=== PATIENT | male | born 1985 | race Caucasian/White ===

== ENCOUNTER 2018-10-07 23:01 | Inpatient (IN) | payer MEDICAID, OTHER ==
[2018-10-08] MEDS: SOD CHLORIDE 0.9% 810 ML IV (00:14)
[2018-10-08 00:19] LABS: ADD MAN DIFF? NO
[2018-10-08 00:21] LABS: BASOPHIL # 0.1 10^3/ul (0.0-0.1); BASOPHILS % 0.6 % (0.0-2.0); EOSINOPHILS # 0.2 10^3/ul (0.0-0.5); EOSINOPHILS % 1.6 % (0.0-7.0); HEMATOCRIT 26.6 % (42.0-52.0); HEMOGLOBIN 8.7 g/dl (14.0-18.0); LYMPHOCYTES # 1.3 10^3/ul (0.8-2.9); LYMPHOCYTES % 11.6 % (15.0-51.0); MEAN CORPUSCULAR HEMOGLOBIN 24.6 pg (29.0-33.0); MEAN CORPUSCULAR HGB CONC 32.7 g/dl (32.0-37.0); MEAN CORPUSCULAR VOLUME 75.4 fl (82.0-101.0); MEAN PLATELET VOLUME 9.5 fl (7.4-10.4); MONOCYTE # 0.6 10^3/ul (0.3-0.9); MONOCYTES % 5.3 % (0.0-11.0); NEUTROPHIL # 9.3 10^3/ul (1.6-7.5); NEUTROPHILS % 80.6 % (39.0-77.0); PLATELET COUNT 763 10^3/UL (140-415); RED BLOOD COUNT 3.53 10^6/ul (4.70-6.10); RED CELL DISTRIBUTION WIDTH 18.1 % (11.5-14.5)
[2018-10-08 00:21] LABS: WHITE BLOOD COUNT 11.6 10^3/ul (4.8-10.8)
[2018-10-08 00:24] LABS: ADD UMIC NO; UR ASCORBIC ACID NEGATIVE (NEGATIVE); UR BILIRUBIN (Dip) NEGATIVE (NEGATIVE); UR BLOOD (Dip) NEGATIVE (NEGATIVE); UR CLARITY CLEAR (CLEAR); UR COLOR COLORLESS (YELLOW); UR GLUCOSE (Dip) 3+ mg/dL (NEGATIVE); UR KETONES (Dip) NEGATIVE (NEGATIVE); UR LEUKOCYTE ESTERASE (Dip) NEGATIVE Leu/ul (NEGATIVE); UR NITRITE (Dip) NEGATIVE (NEGATIVE); UR SPECIFIC GRAVITY (Dip) 1.025 (1.003-1.030); UR TOTAL PROTEIN (Dip) NEGATIVE (NEGATIVE); UR UROBILINOGEN (Dip) NEGATIVE (NEGATIVE)
[2018-10-08 00:40] LABS: ALBUMIN 3.9 g/dl (3.3-4.9); ALBUMIN/GLOBULIN RATIO 0.92; ALKALINE PHOSPHATASE 101 IU/L (42-121); ANION GAP 13 (5-13); ASPARTATE AMINO TRANSFERASE 16 IU/L (15-46); BILIRUBIN,INDIRECT 0.2 mg/dl (0-1.1); BILIRUBIN,TOTAL 0.2 mg/dl (0.2-1.3); BLOOD UREA NITROGEN 18 mg/dl (7-20); CALCIUM 9.6 mg/dl (8.4-10.2); CARBON DIOXIDE 26 mmol/L (21-31); CHLORIDE 91 mmol/L (97-110); Estimated GFR > 60 mL/min (>60); MAGNESIUM 1.8 mg/dl (1.7-2.5); POTASSIUM 5.3 mmol/L (3.5-5.1); SODIUM 130 mmol/L (135-144); TOTAL PROTEIN 8.1 g/dl (6.1-8.1)
[2018-10-08 00:44] LABS: ALANINE AMINOTRANSFERASE < 6 IU/L (13-69)
[2018-10-08 00:49] LABS: GLUCOSE 657 mg/dl (70-220)
[2018-10-08] MEDS: INSULIN REGULAR, HUMAN 100 UNIT/1 ML 3ML VIAL IV (01:21)
[2018-10-08] MEDS: ONDANSETRON 4 MG INJ IV (01:23)
[2018-10-08 01:24] LABS: MODE ROOM AIR; MetHgb Venous 0.3 %; Sample Type Blood venous; Site UVL; Venous COHb 1.2 %; Venous Fraction OxyHgb 85.4 %; Venous Oxygen Sat 86.7 mmHG (55.0-75.0)
[2018-10-08] MEDS: morphine 4 MG/ML VIAL IV (01:24)
[2018-10-08] MEDS ORDERED: ONDANSETRON 4 MG INJ IV (04:00)
[2018-10-08] MEDS ORDERED: BISACODYL (EC) 5 MG TAB PO (04:00)
[2018-10-08] MEDS ORDERED: NACL 0.9% 3 ML SYG IV (04:00)
[2018-10-08] MEDS ORDERED: ACETAMINOPHEN 325 MG TAB PO (04:00)
[2018-10-08] MEDS ORDERED: METOCLOPRAMIDE 10 MG INJ IV (04:00)
[2018-10-08] MEDS ORDERED: DOCUSATE SODIUM 100 MG CAP PO (04:00)
[2018-10-08 04:05] LABS: IRON 25 ug/dl (35-150)
[2018-10-08 04:14] LABS: % IRON SATURATION 5 % SAT (22-52); TOTAL IRON BINDING CAPACITY 458 ug/dl (241-421)
[2018-10-08] MEDS ORDERED: DEXTROSE 50% 50 ML SYRINGE IV ×2 (04:30)
[2018-10-08] MEDS ORDERED: GLUCOSE GEL 15 GRAM TUBE BUCCAL (04:30)
[2018-10-08] MEDS ORDERED: GLUCAGON 1 MG INJ IM (04:30)
[2018-10-08] MEDS ORDERED: GLUCOSE GEL 15 GRAM TUBE PO ×2 (04:30)
[2018-10-08 04:41] LABS: FERRITIN 17.7 ng/ml (17.9-464.0)
[2018-10-08] MEDS: DOCUSATE SODIUM 100 MG CAP PO ×3 (05:00→21:00)
[2018-10-08] MEDS: SOD CHLORIDE 0.9% 1,000 ML IV ×4 (05:42→17:06)
[2018-10-08] MEDS: HYDROmorphONE 0.5 MG/0.5 ML SYG IV (05:42)
[2018-10-08] MEDS: INSULIN GLARGINE [LANTus] (100 UNITS/ML) SYG SC ×3 (06:09→22:38)
[2018-10-08 06:44] LABS: HEMOGLOBIN A1C 12.1 % (0-5.9)
[2018-10-08 06:50] LABS: CHOL/HDL RATIO 3.4 RATIO; CHOLESTEROL 137 mg/dl (100-200); HDL CHOLESTEROL 40 mg/dl (28-63); LDL CHOLESTEROL,CALCULATED 86 mg/dl; TRIGLYCERIDES 53 mg/dl (0-149)
[2018-10-08] MEDS ORDERED: HYDROmorphONE 0.5 MG/0.5 ML SYG IV (07:00)
[2018-10-08 07:30] LABS: LIPASE 14 U/L (23-300)
[2018-10-08 08:03] LABS: THYROID STIMULATING HORMONE 0.871 MIU/L (0.465-4.680)
[2018-10-08] MEDS: POLYETHYLENE GLYCOL 17 GM PACKET PO (08:43)
[2018-10-08] MEDS: INSULIN ASPART [NOVOLOG] 3 ML PEN SC ×7 (08:53→22:56)
[2018-10-08] MEDS: HYDROmorphONE 2 MG TAB PO ×3 (10:30→22:34)
[2018-10-08] MEDS ORDERED: BUSPIRONE 10 MG TAB PO (12:00)
[2018-10-08] MEDS: CREON (12k-38k-60k) 1 CAP PO ×2 (12:40→17:27)
[2018-10-08] MEDS ORDERED: SOD FERRIC GLUC COMPLX 125 MG in SOD CHLORIDE 0.9% 100 ML IVPB (13:00)
[2018-10-08] MEDS: BUSPIRONE 5 MG TAB PO ×2 (13:37→21:36)
[2018-10-08] MEDS: SOD FERRIC GLUC COMPLX 125 MG in SOD CHLORIDE 0.9% 100 ML IVPB (13:37)
[2018-10-08 18:59] LABS: ANION GAP 9 (5-13); BLOOD UREA NITROGEN 14 mg/dl (7-20); CARBON DIOXIDE 26 mmol/L (21-31); CHLORIDE 97 mmol/L (97-110); CREATININE 0.41 mg/dl (0.61-1.24); Estimated GFR > 60 mL/min (>60); GLUCOSE 318 mg/dl (70-220); POTASSIUM 4.5 mmol/L (3.5-5.1); SODIUM 132 mmol/L (135-144)
[2018-10-08] MEDS ORDERED: INSULIN GLARGINE [LANtus] 3 ML PEN SC (21:00)
[2018-10-08] MEDS: ZOLPIDEM 5 MG TAB PO (21:36)
[2018-10-09] MEDS: ACCU-CHEK XX (01:51)
[2018-10-09] MEDS: HYDROmorphONE 2 MG TAB PO ×4 (04:33→23:01)
[2018-10-09] MEDS: SOD CHLORIDE 0.9% 1,000 ML IV ×4 (04:45→20:52)
[2018-10-09 06:13] LABS: ADD MAN DIFF? NO
[2018-10-09 06:15] LABS: WHITE BLOOD COUNT 5.3 10^3/ul (4.8-10.8)
[2018-10-09 06:15] LABS: BASOPHIL # 0.1 10^3/ul (0.0-0.1); BASOPHILS % 1.1 % (0.0-2.0); EOSINOPHILS # 0.4 10^3/ul (0.0-0.5); EOSINOPHILS % 7.5 % (0.0-7.0); HEMATOCRIT 26.7 % (42.0-52.0); LYMPHOCYTES # 1.8 10^3/ul (0.8-2.9); LYMPHOCYTES % 34.4 % (15.0-51.0); MEAN CORPUSCULAR HEMOGLOBIN 25.3 pg (29.0-33.0); MEAN CORPUSCULAR HGB CONC 33.7 g/dl (32.0-37.0); MONOCYTE # 0.6 10^3/ul (0.3-0.9); MONOCYTES % 10.5 % (0.0-11.0); NEUTROPHIL # 2.5 10^3/ul (1.6-7.5); NEUTROPHILS % 46.3 % (39.0-77.0); PLATELET COUNT 748 10^3/UL (140-415); RED BLOOD COUNT 3.56 10^6/ul (4.70-6.10); RED CELL DISTRIBUTION WIDTH 17.3 % (11.5-14.5)
[2018-10-09 07:01] LABS: ALANINE AMINOTRANSFERASE 15 IU/L (13-69); ALBUMIN 3.7 g/dl (3.3-4.9); ALBUMIN/GLOBULIN RATIO 0.88; ALKALINE PHOSPHATASE 85 IU/L (42-121); ANION GAP 14 (5-13); ASPARTATE AMINO TRANSFERASE 21 IU/L (15-46); BILIRUBIN,INDIRECT 0.3 mg/dl (0-1.1); BILIRUBIN,TOTAL 0.3 mg/dl (0.2-1.3); BLOOD UREA NITROGEN 12 mg/dl (7-20); CALCIUM 9.5 mg/dl (8.4-10.2); CARBON DIOXIDE 29 mmol/L (21-31); CHLORIDE 97 mmol/L (97-110); CREATININE 0.45 mg/dl (0.61-1.24); Estimated GFR > 60 mL/min (>60); GLUCOSE 114 mg/dl (70-220); POTASSIUM 4.3 mmol/L (3.5-5.1); SODIUM 140 mmol/L (135-144); TOTAL PROTEIN 7.9 g/dl (6.1-8.1)
[2018-10-09] MEDS: INSULIN ASPART [NOVOLOG] 3 ML PEN SC ×7 (08:00→21:04)
[2018-10-09] MEDS: CREON (12k-38k-60k) 1 CAP PO ×3 (08:30→17:20)
[2018-10-09] MEDS: BUSPIRONE 5 MG TAB PO ×2 (08:30→21:01)
[2018-10-09] MEDS: DOCUSATE SODIUM 100 MG CAP PO ×2 (08:30→21:00)
[2018-10-09] MEDS: POLYETHYLENE GLYCOL 17 GM PACKET PO (08:31)
[2018-10-09] MEDS: INSULIN GLARGINE [LANTus] (100 UNITS/ML) SYG SC ×2 (08:32→21:07)
[2018-10-09] MEDS: SOD FERRIC GLUC COMPLX 125 MG in SOD CHLORIDE 0.9% 100 ML IVPB (12:21)
[2018-10-09] MEDS: ZOLPIDEM 5 MG TAB PO (21:02)
[2018-10-10] MEDS: oxyCODONE 5 MG TAB PO (00:02)
[2018-10-10] MEDS: HYDROmorphONE 0.5 MG/0.5 ML SYG IV (02:02)
[2018-10-10] MEDS: ACCU-CHEK XX (02:34)
[2018-10-10] MEDS: INSULIN ASPART [NOVOLOG] 3 ML PEN SC ×5 (02:56→12:47)
[2018-10-10] MEDS: ENOXAPARIN 80 MG/0.8 ML SYG SC ×2 (02:57→14:24)
[2018-10-10] MEDS: SOD CHLORIDE 0.9% 1,000 ML IV (04:52)
[2018-10-10] MEDS: HYDROmorphONE 2 MG TAB PO ×2 (05:03→11:18)
[2018-10-10 07:24] LABS: ANION GAP 11 (5-13); BLOOD UREA NITROGEN 21 mg/dl (7-20); CALCIUM 9.6 mg/dl (8.4-10.2); CARBON DIOXIDE 25 mmol/L (21-31); CHLORIDE 98 mmol/L (97-110); CREATININE 0.45 mg/dl (0.61-1.24); Estimated GFR > 60 mL/min (>60); GLUCOSE 341 mg/dl (70-220); POTASSIUM 4.5 mmol/L (3.5-5.1); SODIUM 134 mmol/L (135-144)
[2018-10-10] MEDS: CREON (12k-38k-60k) 1 CAP PO ×2 (08:24→12:23)
[2018-10-10] MEDS: BUSPIRONE 5 MG TAB PO (08:25)
[2018-10-10] MEDS: DOCUSATE SODIUM 100 MG CAP PO (08:25)
[2018-10-10] MEDS: POLYETHYLENE GLYCOL 17 GM PACKET PO (08:25)
[2018-10-10] MEDS: INSULIN GLARGINE [LANTus] (100 UNITS/ML) SYG SC (08:27)
[2018-10-10] MEDS: SOD FERRIC GLUC COMPLX 125 MG in SOD CHLORIDE 0.9% 100 ML IVPB (12:23)
== END 2018-10-10 16:30 | disposition home or self-care (01) | DRG 637 ==
LOC: E/R 23:01 → 2NE 10-08 03:27 → 5EC 10-08 21:12
PROVIDERS: Family Medicine
DX: E11.65 Type 2 diabetes mellitus with hyperglycemia (principal); K85.90 Acute pancreatitis without necrosis or infection, unspecified; E87.1 Hypo-osmolality and hyponatremia; I82.612 Acute embolism and thrombosis of superficial veins of left upper extremity; K86.1 Other chronic pancreatitis; Z90.81 Acquired absence of spleen; D50.9 Iron deficiency anemia, unspecified; Z59.0 Homelessness; Z72.0 Tobacco use; E87.5 Hyperkalemia; F41.9 Anxiety disorder, unspecified; Z91.11 Patient's noncompliance with dietary regimen; Z79.4 Long term (current) use of insulin
CPT/HCPCS: 36415; 74176; 80048; 80053; 80061; 81003; 82728; 82803; 82962; 83036; 83540; 83690; 83735; 84100; 84443; 85025; 93971; 96361; 96374; 96375; 99285-25